=== PATIENT | male | born 1975 ===

== ENCOUNTER 2018-04-08 20:39 | Emergency (ER) | payer OTHER ==
[2018-04-08 20:44] VITALS: BP 144/77
[2018-04-08] MEDS ORDERED: POLYTRIM EYE DR10 ML OPH (23:38)
--- NOTE | 2018-04-08 23:39 | ED EYE COMPLAINT ---
History of Present Illness General Chief Complaint: General Adult Stated Complaint: "PINK EYES BOTH EYES" Source: patient Exam Limitations: no limitations Vital Signs & Intake/Output Vital Signs & Intake/Output Vital Signs Date Time Temp Pulse Resp B/P B/P Pulse O2 O2 Flow FiO2 Mean Ox Delivery Rate 04/08 2330 Room Air 04/084 98.6 92 18 144/77 96 Room Air ED Intake and Output 04/09 0000 04/08 1200 Intake Total 0 Output Total Balance 0 Intake, Oral 0 Allergies Coded Allergies: No Known Allergies (04/08/18) Reconcile Medications Polytrim (Polytrim Eye Drops) 10,000 UNIT-1 MG/ML DROPS 1 GTT OPH Q6 pink eye Triage Note: PT TO TRIAGE WITH BOTH EYES RED IN COLOR, AND DRAINING. Triage Nurses Notes Reviewed? yes Onset: Gradual Duration: hour(s): Timing: single episode today Severity: moderate HPI: 42-year-old male presents emergency department complaining of redness and discharge from both eyes for the past several hours. Patient reports yellow discharge coming out of both eyes. Patient also reports sore throat beginning this morning. Patient states that he recently started a job cleaning linen and believes he may have been exposed to some bacteria. Denies fevers, chills, sick contact, abdominal pain, vomiting, blurry vision. (Savanna Gomez) Past History Travel History Traveled to [place] past 21 day No Medical History Any Pertinent Medical History? none Neurological: NONE EENT: NONE Cardiovascular: NONE Respiratory: NONE Gastrointestinal: NONE Hepatic: NONE Renal: NONE Musculoskeletal: NONE Psychiatric: NONE Endocrine: NONE Blood Disorders: NONE Cancer(s): NONE MANAGER ADVANCED/Reproductive: NONE Surgical History Surgical History: none Psychosocial History What is your primary language Cameroonian Tobacco Use: Current Daily Use Daily Tobacco Use Amount/Type: => 5 Cigarettes daily ETOH Use: denies use Family History Hx Contributory? No (Savanna Gomez) Review of Systems Review of Systems Constitutional: Reports: no symptoms. Eyes: Reports: see HPI. Ear: Reports: no symptoms. Nose: Reports: no symptoms. Mouth: Reports: no symptoms. Throat: Reports: see HPI. Respiratory: Reports: no symptoms. Cardiovascular: Reports: no symptoms. GI: Reports: no symptoms. Genitourinary: Reports: no symptoms. Musculoskeletal: Reports: no symptoms. Skin: Reports: no symptoms. Neurological/Psychological: Reports: no symptoms. Hematologic/Endocrine: Reports: no symptoms. Immunologic/Allergic: Reports: no symptoms. All Other Systems: Reviewed and Negative (Savanna Gomez) Physical Exam General Appearance: well developed/nourished, no apparent distress, alert, awake General Inspection: normal inspection Eyelid: normal inspection Conjunctiva/Sclera: injected Cornea: normal inspection EOM: intact Pupil: normal accommodation, normal pupil, PERRL General Inspection: normal inspection Eyelid: normal inspection Conjunctiva/Sclera: injected Cornea: normal inspection EOM: intact Pupil: normal accommodation, normal pupil, PERRL Physical Exam Head: atraumatic, normal appearance Ears: Bilateral: canal normal, Tympanic normal. Nose: normal inspection Mouth/Throat: normal mouth inspection, mild pharyngeal swelling without tonsillar exudates Neck: normal inspection, supple, full range of motion, anterior cervical lymphadenopathy Cardiovascular/Respiratory: no respiratory distress Neurologic/Psych: awake, alert, oriented x 3 Skin: intact, normal color, warm/dry (Savanna Gomez) Progress Differential Diagnosis: corneal abrasion, conjunctivitis, strep pharyngitis, viral syndrome, otitis media Plan of Care: Physical exam is consistent with conjunctivitis, given yellow discharge the patient reports it is likely bacterial. We'll initiate antibiotic drops. No evidence of acute strep pharyngitis on physical exam. Patient was offered strep testing however he declines. Symptoms more related to viral pharyngitis. Patient in no acute distress, vital signs are stable. He agrees with the plan of care. (Savanna Gomez) Departure Departure Disposition: HOME OR SELF CARE Condition: Stable Clinical Impression Primary Impression: Conjunctivitis Qualifiers: Conjunctivitis type: acute Acute conjunctivitis type: bacterial Laterality: bilateral Qualified Code: H10.33 - Unspecified acute conjunctivitis, bilateral Secondary Impressions: Sore throat Referrals: Kell BURCH,Melvin Juarez (PCP/Family) Additional Instructions: Apply eyedrops as prescribed. Return with worsening symptoms or concerns. Please note that there might be incidental findings in your evaluation that are unrelated to the current emergency department visit. Please notify your primary care doctor about this emergency department visit in order to obtain and review all of the testing performed so that these incidental findings can be monitored as needed. If you had an x-ray performed, please understand that some fractures may not be seen on the initial set of x-rays. If your symptoms persist you might need a repeat set of x-rays to check for such a fracture. If you had a laceration evaluated, please understand that foreign bodies such as glass or wood may not be visible to the naked eye or on plain x-rays. If the wound becomes red, swollen, increasingly more painful or if there is any drainage from the wound, please have it reevaluated by a physician for the possibility of a retained foreign body. If you're unable to follow up as outlined in the discharge instructions please return to the emergency department. Thank you for choosing the [facility] Emergency Department for your care. It was a pleasure to serve you today. Departure Forms: Customer Survey General Discharge Information Prescriptions: Current Visit Scripts Polytrim (Polytrim Eye Drops) 1 GTT OPH Q6 #10 ML (Sofy SHAH,Savanna Atkinson) PA/COKE WORKER Co-Sign Statement Statement: ED Attending supervision documentation- [] I saw and evaluated the patient. I have also reviewed all the pertinent lab results and diagnostic results. I agree with the findings and the plan of care as documented in the PA's/COKE WORKER's documentation. [x] I have reviewed the ED Record and agree with the PA's/COKE WORKER's documentation. [] Additions or exceptions (if any) to the PAs/COKE WORKER's note and plan are summarized below: [] (Griffin BURCH,Oracio Neri)
== END 2018-04-08 23:42 ==
LOC: ERH 20:39
DX: H10.9 Unspecified conjunctivitis (principal); J02.9 Acute pharyngitis, unspecified; F17.210 Nicotine dependence, cigarettes, uncomplicated